=== PATIENT | female | born 2000 | race Caucasian/White ===

== ENCOUNTER 2020-12-31 11:35 | Day surgery (SDC) | payer OTHER ==
[2020-12-29 14:34] VITALS: BMI 26.5
[2020-12-31] MEDS ORDERED: PROPOFOL 20 ML ONE (13:02)
[2020-12-31 13:55] VITALS: BP 97/63; PULSE 52; TEMP 98
== END 2020-12-31 14:10 | disposition home or self-care (01) ==
LOC: FASU-ENDO 11:35
PROVIDERS: ATTEND Internal Medicine Gastroenterology
PROC: 0DB68ZX Excision of Stomach, Via Natural or Artificial Opening Endoscopic, Diagnostic (ICD-10-PCS; 2020-12-31)
PROC: 0DB48ZX Excision of Esophagogastric Junction, Via Natural or Artificial Opening Endoscopic, Diagnostic (ICD-10-PCS; 2020-12-31)
PROC: 0DB98ZX Excision of Duodenum, Via Natural or Artificial Opening Endoscopic, Diagnostic (ICD-10-PCS; principal; 2020-12-31 13:12)
DX: K29.50 Unspecified chronic gastritis without bleeding (principal); K21.00 Gastro-esophageal reflux disease with esophagitis, without bleeding; R10.13 Epigastric pain
CPT/HCPCS: 84703